=== PATIENT | male | born 1960 | race Caucasian/White ===

== ENCOUNTER 2016-06-16 11:15 | Inpatient (IN) | payer OTHER ==
[2016-06-16 12:07] VITALS: BMI 27.4
--- NOTE | 2016-06-16 14:32 | HP ---
CIWA Score - CIWA Score Nausea/Vomitin Muscle Tremors: 3 Anxiety: 3 Agitation: 2 Paroxysmal Sweats: 2 Orientation: 0-Oriented Tacttile Disturbances: 2-Mild Itch/Numbness/Burn Auditory Disturbances: 2-Mild Harshness/Frighten Visual Disturbances: 2-Mild Sensitivity Headache: 2-Mild CIWA-Ar Total Score: 21 Admission ROS BHS - HPI Chief Complaint: i need help to stop drinking alcohol Allergies/Adverse Reactions: Allergies Allergy/AdvReac Type Severity Reaction Status Date / Time No Known Allergies Allergy Verified 06/16/16 14:19 History of Present Illness: this 55 years old male with alcohol dependence,withdrawal symptom,last detox interfaithe 2004 seizure syncope fx of l1 s/p surgery incontinence of urine and feces gouty arthritis anxiety and depression no significant period of sobriety - Ebola screening Have you traveled outside of the country in the last 21 days: No Have you had contact with anyone from an Ebola affected area: No Have you been sick,other than usual withdrawal symptoms: No Do you have a fever: No - Review of Systems Constitutional: Chills, Loss of Appetite, Malaise, Night Sweats, Changes in sleep, Weakness EENT: reports: Nose Congestion Respiratory: reports: No Symptoms reported Cardiac: reports: Palpitations GI: reports: Diarrhea, Poor Appetite, Abdominal cramping : reports: Incontinence Musculoskeletal: reports: Gout, Joint Pain, Muscle Pain Integumentary: reports: Dryness Neuro: reports: Headache, Tremors Endocrine: reports: No Symptoms Reported Hematology: reports: No Symptoms Reported Psychiatric: reports: Anxious, Depressed Patient History - Patient Medical History Hx Anemia: No Hx Asthma: No Hx Chronic Obstructive Pulmonary Disease (COPD): No Hx Cancer: No Hx Cardiac Disorders: No Hx Congestive Heart Failure: No Hx Hypertension: Yes (on med) Hx Hypercholesterolemia: No Hx Pacemaker: No HX Cerebrovascular Accident: No Hx Seizures: Yes (last 2015) Hx Dementia: No Hx Diabetes: No Hx Gastrointestinal Disorders: No Hx Liver Disease: No Hx Genitourinary Disorders: No Hx Sexually Transmitted Disorders: No Hx Renal Disease (ESRD): No Hx Thyroid Disease: No Hx Human Immunodeficiency Virus (HIV): No (last 2015) Hx Hepatitis C: Yes (under the care of pmd) Hx Depression: Yes (anxiety) Hx Suicide Attempt: Yes (cutter left wrist) Hx Bipolar Disorder: No Hx Schizophrenia: No Other Medical History: no suicidal,no homicidal - Patient Surgical History Past Surgical History: Yes Hx Abdominal Surgery: Yes (surgery of liver abscess in 2007,rectal prolapse lap 2014) Hx Orthopedic Surgery: Yes (for fx of l1at age of 17) - PPD History Previous Implant?: Yes Documented Results: Negative w/o proof Implanted On Prior R Admission?: No PPD to be Administered?: Yes - Smoking Cessation Smoking history: Current every day smoker Have you smoked in the past 12 months: Yes Aproximately how many cigarettes per day: 20 Cigars Per Day: 0 Hx Chewing Tobacco Use: No Initiated information on smoking cessation: Yes 'Breaking Loose' booklet given: 06/16/16 - Substance & Tx. History Hx Alcohol Use: Yes Hx Substance Use: No Substance Use Type: Alcohol Hx Substance Use Treatment: Yes (interfaithe 2014) - Substances Abused Alcohol Route: Oral Frequency: Daily Amount used: FIFTH OF VODKA Age of first use: 16 Date of Last Use: 06/16/16 Family Disease History - Family Disease History Family Disease History: Other: Father (alcohol) Admission Physical Exam S - Vital Signs Vital Signs: Vital Signs - 24 hr 06/16/16 12:05 Temperature 98.1 F Pulse Rate 113 H Respiratory 20 Rate Blood Pressure 132/96 - Physical General Appearance: Yes: Moderate Distress, Tremorous, Irritable, Sweating, Anxious HEENTM: Yes: Normal ENT Inspection, Pharynx Normal, Nasal Congestion Respiratory: Yes: Lungs Clear, Normal Breath Sounds, No Respiratory Distress Neck: Yes: Within Normal Limits, Supple, Trachea in good position Breast: Yes: Within Normal Limits Cardiology: Yes: Within Normal Limits, Regular Rhythm, Regular Rate, S1, S2 Abdominal: Yes: Within Normal Limits, Normal Bowel Sounds, Non Tender, Flat, Soft Genitourinary: Yes: Pain (incontinence of urine) Back: Yes: Muscle Spasm Musculoskeletal: Yes: Back pain, Muscle Pain, Other (scar in lower back) Extremities: Yes: Normal Range of Motion, Tremors Neurological: Yes: 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, Fully Oriented, Alert, Motor Strength 5/5 Integumentary: Yes: Warm, Other (swelling with pain in right big toe with cellulitis) Lymphatic: Yes: Within Normal Limits - Diagnostic (1) Alcohol dependence with uncomplicated withdrawal Current Visit: Yes Status: Acute (2) Seizure Current Visit: Yes Status: Acute (3) Syncope Current Visit: Yes Status: Acute (4) Gouty arthritis Current Visit: Yes Status: Acute (5) Fracture of L1 vertebra Current Visit: Yes Status: Acute (6) History of back surgery Current Visit: Yes Status: Acute (7) Hepatitis C Current Visit: Yes Status: Acute (8) Incontinence of urine Current Visit: Yes Status: Acute (9) Incontinence, feces Current Visit: Yes Status: Acute (10) Anxiety and depression Current Visit: Yes Status: Acute (11) Hypertension Current Visit: Yes Status: Acute (12) Cellulitis of right foot Current Visit: Yes Status: Acute Cleared for Admission [facility] - Detox or Rehab [facility] Level of Care: Medically Managed Detox Regimen/Protocol: Librium [facility] Breath Alcohol Content Breath Alcohol Content: 0.074 Urine Drug Screen - Results Drug Screen Negative: No Urine Drug Screen Results: BZO-Benzodiazepines
[2016-06-16] MEDS ORDERED: guaiFENesin/D-METHORPHAN HB 10 ML UNIT-DOSE CUPS PO PRN (14:49)
[2016-06-16] MEDS ORDERED: MAGNESIUM HYDROX 2400MG/30ML ORAL SUSPENSION 30 ML CUP PO PRN (14:49)
[2016-06-16] MEDS ORDERED: ACETAMINOPHEN 325 MG TABLET (FP) PO PRN (14:49)
[2016-06-16] MEDS ORDERED: P-EPHED 60MG/TRIPROLIDI 2.5MG TABLET PO PRN (14:49)
[2016-06-16] MEDS ORDERED: LOPERAMIDE HCL 2 MG CAPSULE PO PRN (14:49)
[2016-06-16] MEDS ORDERED: MAGNESIUM CITRATE 300 ML BOTTLE PO PRN (14:49)
[2016-06-16] MEDS ORDERED: hydrOXYzine PAMOATE 25 MG CAPSULE (FP) PO PRN (14:49)
[2016-06-16] MEDS ORDERED: MENTHOL/PHENOL 1 EACH UD MM PRN (14:49)
[2016-06-16] MEDS ORDERED: MAG HYDROX/AL HYDROX/SIMETH 30 ML UNIT-DOSE CUP PO PRN (14:49)
[2016-06-16] MEDS ORDERED: chlordiazePOXIDE HCL 25 MG CAPSULE PO ONE (15:21)
[2016-06-16] MEDS: NICOTINE 7 MG/24 HOURS TOPICAL PATCH TD SCH (15:30)
[2016-06-16] MEDS ORDERED: cloNIDine HCL 0.1 MG TABLET PO ONE (15:38)
[2016-06-16] MEDS: CEPHALEXIN MONOHYDRATE 500 MG CAPSULE (UD) PO SCH ×2 (17:12→22:08)
[2016-06-16] MEDS: chlordiazePOXIDE HCL 25 MG CAPSULE PO SCH ×2 (17:12→22:08)
[2016-06-16 18:43] LABS: URINE APPEARANCE CLOUDY; URINE BILIRUBIN NEGATIVE (NEGATIVE); URINE BLOOD NEGATIVE (NEGATIVE); URINE COLOR DKYELLOW; URINE GLUCOSE (UA) NEGATIVE (NEGATIVE); URINE KETONE NEGATIVE (NEGATIVE); URINE NITRITE NEGATIVE (NEGATIVE); URINE UROBILINOGEN NEGATIVE E.U./dl (0.2-1.0)
[2016-06-16 18:47] LABS: URINE LEUK ESTERASE 3+ (NEGATIVE); URINE PROTEIN 2+ (NEGATIVE)
[2016-06-16 19:04] LABS: URINE MUCUS RARE; URINE RBC 66 /hpf (0-3); URINE WBC 1700 /hpf (3-5)
[2016-06-16 19:26] LABS: HIV 1 & 2 AB NEGATIVE; HIV 1 AGp24 NEGATIVE
[2016-06-16] MEDS: THIAMINE HCL 100 MG TABLET (FP) PO SCH (22:08)
[2016-06-16] MEDS: diphenhydrAMINE HCL 50 MG CAPSULE PO PRN (22:08)
[2016-06-17] MEDS: chlordiazePOXIDE HCL 25 MG CAPSULE PO SCH ×4 (05:56→22:09)
[2016-06-17 09:52] LABS: URINE APPEARANCE TURBID; URINE BILIRUBIN NEGATIVE (NEGATIVE); URINE COLOR DKYELLOW; URINE GLUCOSE (UA) NEGATIVE (NEGATIVE); URINE KETONE NEGATIVE (NEGATIVE); URINE NITRITE NEGATIVE (NEGATIVE); URINE UROBILINOGEN NEGATIVE E.U./dl (0.2-1.0)
[2016-06-17 09:53] LABS: MCH 31.8 pg (25.7-33.7); MCHC 33.6 g/dl (32.0-35.9); MEAN CELL VOLUME 94.7 fl (80-96); MEAN PLT VOLUME 9.8 fl (7.5-11.1); PLATELET COUNT 191 K/MM3 (134-434); RDW 13.2 % (11.9-15.9); WHITE BLOOD COUNT 10.2 K/mm3 (4.0-10.0)
[2016-06-17 10:00] LABS: URINE BLOOD 1+ (NEGATIVE); URINE LEUK ESTERASE 3+ (NEGATIVE); URINE PROTEIN 2+ (NEGATIVE)
[2016-06-17 10:07] LABS: GRANULAR CASTS 9 /lpf; URINE HYALINE CAST 9 /lpf; URINE MUCUS FEW; URINE RBC 153 /hpf (0-3); URINE WBC 1838 /hpf (3-5)
[2016-06-17] MEDS: PRENATAL VITAMINS W/ FOLIC ACID TABLET (FP) PO SCH (10:14)
[2016-06-17] MEDS: CEPHALEXIN MONOHYDRATE 500 MG CAPSULE (UD) PO SCH ×4 (10:14→22:09)
[2016-06-17] MEDS: COLCHICINE 0.6 MG TABLET (FP) PO SCH (10:14)
[2016-06-17] MEDS: NICOTINE 7 MG/24 HOURS TOPICAL PATCH TD SCH (10:14)
[2016-06-17] MEDS: IBUPROFEN 400 MG TABLET (FP) PO PRN ×2 (10:18→17:45)
[2016-06-17 10:38] LABS: ALBUMIN 4.6 g/dl (3.4-5.0); ALK PHOS 85 U/L (45-117); ANION GAP 12 (8-16); BILIRUBIN,TOTAL 0.7 mg/dL (0.2-1.0); CALCIUM 9.8 mg/dL (8.5-10.1); CO2 25 mmol/L (21-32); CREATININE 0.7 mg/dL (0.7-1.3); GLUCOSE,RANDOM 82 mg/dL (74-106); SGOT/AST 47 U/L (15-37); SGPT/ALT 45 U/L (12-78); TOT PROT 7.8 g/dl (6.4-8.2)
--- NOTE | 2016-06-17 10:58 | CONSULT ---
[facility] Psychiatric Consult - Data Date of interview: 06/17/16 Admission source: [facility] Identifying data: First admission to [facility] for this 55 y/o male seeking detox treatment foir alcohol dependence.Patient is ,a father of four,domiciled,disabled and supported on SSI benefits. Substance Abuse History: - Smoking Cessation. Smoking history: Current every day smoker. Have you smoked in the past 12 months: Yes. Aproximately how many cigarettes per day: 20. Cigars Per Day: 0. Hx Chewing Tobacco Use: No. Initiated information on smoking cessation: Yes. 'Breaking Loose' booklet given : 06/16/16. - Substance & Tx. History. Hx Alcohol Use: Yes. Hx Substance Use : No. Substance Use Type: Alcohol. Hx Substance Use Treatment: Yes ( interfaithe 2014). - Substances Abused. Alcohol. Route: Oral. Frequency: Daily. Amount used: FIFTH OF VODKA. Age of first use: 16. Date of Last Use: 06/16/16. Confirmed by patient. Medical History: Hypertension,withdrawal-related seizures (2015),gout,arthritis, hepatitis C and a history multiple surgeries (abdominal surgery for liver abscess in 2007,rectal prolapse in 2014,orthosurgery for fracture of L1 at age 17).Noted permanent urinary/fecal incontinence.Patient ambulates witha cane. Psychiatric History: Patient denies.No psychiatric hospitalizations in spite of self-report of two suicide attempts (wrist-cutting and drug overdose) years ago. Physical/Sexual Abuse/Trauma History: Patient denies. Additional Comment: Urine Drug Screen Results: BZO-Benzodiazepines.Noted. Mental Status Exam - Mental Status Exam Alert and Oriented to: Time, Place, Person Cognitive Function: Good Patient Appearance: Well Groomed Mood: Hopeful, Euthymic Affect: Appropriate, Normal Range Patient Behavior: Appropriate, Cooperative Speech Pattern: Clear, Appropriate Voice Loudness: Normal Thought Process: Goal Oriented Thought Disorder: Not Present Hallucinations: Denies Suicidal Ideation: Denies Homicidal Ideation: Denies Insight/Judgement: Poor Sleep: Poorly, Difficulty falling asleep Appetite: Good Muscle strength/Tone: Normal Gait/Station: Normal Psychiatric Findings - Problem List ([place] 1, 2,3) (1) Alcohol dependence with uncomplicated withdrawal Current Visit: Yes Status: Acute (2) Nicotine dependence Current Visit: Yes Status: Acute (3) Cellulitis of right foot Current Visit: Yes Status: Acute (4) Fracture of L1 vertebra Current Visit: Yes Status: Chronic (5) Gouty arthritis Current Visit: Yes Status: Chronic (6) Hepatitis C Current Visit: Yes Status: Chronic (7) History of back surgery Current Visit: Yes Status: Chronic (8) Hypertension Current Visit: Yes Status: Chronic (9) Incontinence of urine Current Visit: Yes Status: Chronic (10) Incontinence, feces Current Visit: Yes Status: Chronic (11) Insomnia Current Visit: Yes Status: Acute - Initial Treatment Plan Initial Treatment Plan: Psychoeducation.Detoxification.Zolpidem 10 mg po hs prn (patient's request).Made aware of the risk of parasomnias.Patient agrees with this careplan.Observation.
--- NOTE | 2016-06-17 11:21 | PN ---
[facility] CIWA - CIWA Score Nausea/Vomitin-No Nausea/No Vomiting Muscle Tremors: 4-Moderate,w/Arms Extend Anxiety: 4-Mod. Anxious/Guarded Agitation: 4-Moderately Restless Paroxysmal Sweats: 1-Minimal Palms Moist Orientation: 0-Oriented Tacttile Disturbances: 3-Moderate Itch/Numb/Burn Auditory Disturbances: 0-None Visual Disturbances: 0-None Headache: 0-None Present CIWA-Ar Total Score: 16 BHS Progress Note (SOAP) Subjective: ANXIETY,SWEATS,TREMORS,FATIGUE. Objective: 06/17/16 11:19 Vital Signs Temperature 96.4 F L 06/17/16 09:12 Pulse Rate 91 H 06/17/16 09:12 Respiratory Rate 20 06/17/16 09:12 Blood Pressure 134/92 06/17/16 09:12 O2 Sat by Pulse Oximetry (%) Laboratory Last Values WBC 10.2 K/mm3 (4.0-10.0) H 06/17/16 06:20 RBC 5.39 M/mm3 (4.00-5.60) 06/17/16 06:20 Hgb 17.1 GM/dL (11.7-16.9) H 06/17/16 06:20 Hct 51.1 % (35.4-49) H 06/17/16 06:20 MCV 94.7 fl (80-96) 06/17/16 06:20 MCHC 33.6 g/dl (32.0-35.9) 06/17/16 06:20 RDW 13.2 % (11.9-15.9) 06/17/16 06:20 Plt Count 191 K/MM3 (134-434) 06/17/16 06:20 MPV 9.8 fl (7.5-11.1) 06/17/16 06:20 Sodium 142 mmol/L (136-145) 06/17/16 06:20 Potassium 4.9 mmol/L (3.5-5.1) 06/17/16 06:20 Chloride 105 mmol/L (98-107) 06/17/16 06:20 Carbon Dioxide 25 mmol/L (21-32) 06/17/16 06:20 Anion Gap 12 (8-16) 06/17/16 06:20 BUN 17 mg/dL (7-18) 06/17/16 06:20 Creatinine 0.7 mg/dL (0.7-1.3) 06/17/16 06:20 Creat Clearance w eGFR > 60 (>60) 06/17/16 06:20 Random Glucose 82 mg/dL (74-106) 06/17/16 06:20 Calcium 9.8 mg/dL (8.5-10.1) 06/17/16 06:20 Total Bilirubin 0.7 mg/dL (0.2-1.0) 06/17/16 06:20 AST 47 U/L (15-37) H 06/17/16 06:20 ALT 45 U/L (12-78) 06/17/16 06:20 Alkaline Phosphatase 85 U/L (45-117) 06/17/16 06:20 Total Protein 7.8 g/dl (6.4-8.2) 06/17/16 06:20 Albumin 4.6 g/dl (3.4-5.0) 06/17/16 06:20 Urine Color Dkyellow 06/17/16 08:30 Urine Appearance Turbid 06/17/16 08:30 Urine pH 5.0 (5.0-8.0) 06/17/16 08:30 Ur Specific [place] 1.028 (1.001-1.035) 06/17/16 08:30 Urine Protein 2+ (NEGATIVE) H 06/17/16 08:30 Urine Glucose (UA) Negative (NEGATIVE) 06/17/16 08:30 Urine Ketones Negative (NEGATIVE) 06/17/16 08:30 Urine Blood 1+ (NEGATIVE) H 06/17/16 08:30 Urine Nitrite Negative (NEGATIVE) 06/17/16 08:30 Urine Bilirubin Negative (NEGATIVE) 06/17/16 08:30 Urine Urobilinogen Negative E.U./dl (0.2-1.0) 06/17/16 08:30 Ur Leukocyte Esterase 3+ (NEGATIVE) H 06/17/16 08:30 Urine RBC 153 /hpf (0-3) 06/17/16 08:30 Urine WBC 1838 /hpf (3-5) 06/17/16 08:30 Ur Epithelial Cells Rare /hpf (FEW) 06/17/16 08:30 Hyaline Casts 9 /lpf 06/17/16 08:30 Granular Casts 9 /lpf 06/17/16 08:30 Urine Mucus Few 06/17/16 08:30 HIV 1&2 Antibody Screen Negative 06/16/16 18:40 HIV P24 Antigen Negative 06/16/16 18:40 LABS NOTED Assessment: 06/17/16 11:20 WITHDRAWAL SX Plan: CONTINUE DETOX REPEAT UA;UC
--- NOTE | 2016-06-17 11:25 | EKG ---
Test Reason : Blood Pressure : / mmHG Vent. Rate : 106 BPM Atrial Rate : 106 BPM P-R Int : 150 ms QRS Dur : 090 ms QT Int : 332 ms P-R-T Axes : 067 019 054 degrees QTc Int : 441 ms SINUS TACHYCARDIA SEPTAL INFARCT , AGE UNDETERMINED ABNORMAL ECG NO PREVIOUS ECGS AVAILABLE Confirmed by JANET MAYES, RIGOBERTO ([id number]) on 06/17/2016 11:24:38 AM Referred By: Confirmed By:RIGOBERTO GONZALES MD
[2016-06-17] MEDS: chlordiazePOXIDE HCL 25 MG CAPSULE PO PRN (13:54)
[2016-06-17 15:17] LABS: URINE APPEARANCE CLOUDY; URINE BILIRUBIN NEGATIVE (NEGATIVE); URINE BLOOD NEGATIVE (NEGATIVE); URINE COLOR YELLOW; URINE GLUCOSE (UA) NEGATIVE (NEGATIVE); URINE KETONE NEGATIVE (NEGATIVE); URINE NITRITE NEGATIVE (NEGATIVE); URINE UROBILINOGEN NEGATIVE E.U./dl (0.2-1.0)
[2016-06-17 15:28] LABS: URINE LEUK ESTERASE 3+ (NEGATIVE); URINE PROTEIN 1+ (NEGATIVE)
[2016-06-17 16:21] LABS: URINE HYALINE CAST 19 /lpf; URINE MUCUS RARE; URINE RBC 30 /hpf (0-3); URINE WBC 569 /hpf (3-5)
[2016-06-17] MEDS: THIAMINE HCL 100 MG TABLET (FP) PO SCH (22:09)
[2016-06-17] MEDS: ZOLPIDEM TARTRATE 10 MG TABLET (PARK CARE ONLY) PO PRN (22:11)
[2016-06-18] MEDS: IBUPROFEN 400 MG TABLET (FP) PO PRN ×2 (05:55→17:49)
[2016-06-18] MEDS: chlordiazePOXIDE HCL 25 MG CAPSULE PO SCH ×2 (05:56→10:00)
[2016-06-18] MEDS: CEPHALEXIN MONOHYDRATE 500 MG CAPSULE (UD) PO SCH ×4 (10:00→22:20)
[2016-06-18] MEDS: PRENATAL VITAMINS W/ FOLIC ACID TABLET (FP) PO SCH (10:00)
[2016-06-18] MEDS: NICOTINE 7 MG/24 HOURS TOPICAL PATCH TD SCH (10:00)
[2016-06-18] MEDS: COLCHICINE 0.6 MG TABLET (FP) PO SCH (10:00)
--- NOTE | 2016-06-18 10:21 | PN ---
S CIWA - CIWA Score Nausea/Vomitin-No Nausea/No Vomiting Muscle Tremors: 4-Moderate,w/Arms Extend Anxiety: 3 Agitation: 4-Moderately Restless Paroxysmal Sweats: 3 Orientation: 0-Oriented Tacttile Disturbances: 0-None Auditory Disturbances: 0-None Visual Disturbances: 0-None Headache: 0-None Present CIWA-Ar Total Score: 14 BHS Progress Note (SOAP) Subjective: Sweating,anxiety,tremors,interrupted sleep,restless Objective: 06/18/16 10:18 Vital Signs - 8 hr 06/18/16 06/18/16 06/18/16 03:56 06:36 09:22 Temperature 97.3 F L 95.9 F L Pulse Rate 73 82 Respiratory 18 18 18 Rate Blood Pressure 126/88 123/84 Laboratory Tests 06/16/16 06/16/16 06/17/16 13:00 18:40 06:20 WBC 10.2 H RBC 5.39 Hgb 17.1 H Hct 51.1 H MCV 94.7 MCHC 33.6 RDW 13.2 Plt Count 191 MPV 9.8 Sodium Potassium Chloride Carbon Dioxide Anion Gap BUN Creatinine Creat Clearance w eGFR Random Glucose Calcium Total Bilirubin AST ALT Alkaline Phosphatase Total Protein Albumin Urine Color Dkyellow Urine Appearance Cloudy Urine pH 5.0 Ur Specific [place] 1.032 Urine Protein 2+ H Urine Glucose (UA) Negative Urine Ketones Negative Urine Blood Negative Urine Nitrite Negative Urine Bilirubin Negative Urine Urobilinogen Negative Ur Leukocyte Esterase 3+ H Urine RBC 66 Urine WBC 1700 Ur Epithelial Cells Few Hyaline Casts Granular Casts Urine Mucus Rare RPR Titer HIV 1&2 Antibody Screen Negative HIV P24 Antigen Negative 06/17/16 06/17/16 06/17/16 06:20 06:20 08:30 WBC RBC Hgb Hct MCV MCHC RDW Plt Count MPV Sodium 142 Potassium 4.9 Chloride 105 Carbon Dioxide 25 Anion Gap 12 BUN 17 Creatinine 0.7 Creat Clearance w eGFR > 60 Random Glucose 82 Calcium 9.8 Total Bilirubin 0.7 AST 47 H ALT 45 Alkaline Phosphatase 85 Total Protein 7.8 Albumin 4.6 Urine Color Dkyellow Urine Appearance Turbid Urine pH 5.0 Ur Specific [place] 1.028 Urine Protein 2+ H Urine Glucose (UA) Negative Urine Ketones Negative Urine Blood 1+ H Urine Nitrite Negative Urine Bilirubin Negative Urine Urobilinogen Negative Ur Leukocyte Esterase 3+ H Urine RBC 153 Urine WBC 1838 Ur Epithelial Cells Rare Hyaline Casts 9 Granular Casts 9 Urine Mucus Few RPR Titer Nonreactive HIV 1&2 Antibody Screen HIV P24 Antigen 06/17/16 12:00 WBC RBC Hgb Hct MCV MCHC RDW Plt Count MPV Sodium Potassium Chloride Carbon Dioxide Anion Gap BUN Creatinine Creat Clearance w eGFR Random Glucose Calcium Total Bilirubin AST ALT Alkaline Phosphatase Total Protein Albumin Urine Color Yellow Urine Appearance Cloudy Urine pH 5.0 Ur Specific [place] 1.028 Urine Protein 1+ H Urine Glucose (UA) Negative Urine Ketones Negative Urine Blood Negative Urine Nitrite Negative Urine Bilirubin Negative Urine Urobilinogen Negative Ur Leukocyte Esterase 3+ H Urine RBC 30 Urine WBC 569 Ur Epithelial Cells Few Hyaline Casts 19 Granular Casts Urine Mucus Rare RPR Titer HIV 1&2 Antibody Screen HIV P24 Antigen U/A noted,pt is already on antibiotic for cellulitis.We'll increase po fluid and repeat u/a in am Assessment: 06/18/16 10:20 Withdrawal Sx. Plan: Continue detox
--- NOTE | 2016-06-18 12:36 | EKG ---
Test Reason : Blood Pressure : / mmHG Vent. Rate : 074 BPM Atrial Rate : 074 BPM P-R Int : 162 ms QRS Dur : 090 ms QT Int : 394 ms P-R-T Axes : 033 027 046 degrees QTc Int : 437 ms NORMAL SINUS RHYTHM NORMAL ECG WHEN COMPARED WITH ECG OF 16-JUN-2016 14:44, CRITERIA FOR SEPTAL INFARCT ARE NO LONGER PRESENT Confirmed by MARY MATHEW MD ([id number]) on 06/18/2016 12:36:43 PM Referred By: Confirmed By:MARY MATHEW MD
[2016-06-18] MEDS: chlordiazePOXIDE HCL 25 MG CAPSULE PO PRN (14:40)
[2016-06-18] MEDS: chlordiazePOXIDE 5 MG CAPSULE PO SCH ×2 (17:48→22:20)
[2016-06-18] MEDS: THIAMINE HCL 100 MG TABLET (FP) PO SCH (22:20)
[2016-06-18] MEDS: ZOLPIDEM TARTRATE 10 MG TABLET (PARK CARE ONLY) PO PRN (22:21)
[2016-06-19] MEDS: diphenhydrAMINE HCL 50 MG CAPSULE PO PRN (02:40)
[2016-06-19] MEDS: IBUPROFEN 400 MG TABLET (FP) PO PRN ×3 (02:40→17:56)
[2016-06-19] MEDS: chlordiazePOXIDE 5 MG CAPSULE PO SCH ×2 (05:29→10:15)
[2016-06-19] MEDS: COLCHICINE 0.6 MG TABLET (FP) PO SCH (10:15)
[2016-06-19] MEDS: PRENATAL VITAMINS W/ FOLIC ACID TABLET (FP) PO SCH (10:15)
[2016-06-19] MEDS: NICOTINE 7 MG/24 HOURS TOPICAL PATCH TD SCH (10:16)
[2016-06-19] MEDS: CEPHALEXIN MONOHYDRATE 500 MG CAPSULE (UD) PO SCH ×4 (10:16→22:06)
--- NOTE | 2016-06-19 13:12 | PN ---
BHS Progress Note (SOAP) Subjective: Body Aches, Sweating, Tremors, Interrupted sleep. Objective: PT. A & O X 2 (DISORIENTED ABOUT DAY/ DATE). PATIENT OBSERVED AMBULATING ON UNIT. 06/19/16 13:09 Vital Signs Temperature 96.7 F L 06/19/16 10:27 Pulse Rate 88 06/19/16 10:27 Respiratory Rate 18 06/19/16 10:27 Blood Pressure 127/92 06/19/16 10:27 O2 Sat by Pulse Oximetry (%) Laboratory Last Values WBC 10.2 K/mm3 (4.0-10.0) H 06/17/16 06:20 RBC 5.39 M/mm3 (4.00-5.60) 06/17/16 06:20 Hgb 17.1 GM/dL (11.7-16.9) H 06/17/16 06:20 Hct 51.1 % (35.4-49) H 06/17/16 06:20 MCV 94.7 fl (80-96) 06/17/16 06:20 MCHC 33.6 g/dl (32.0-35.9) 06/17/16 06:20 RDW 13.2 % (11.9-15.9) 06/17/16 06:20 Plt Count 191 K/MM3 (134-434) 06/17/16 06:20 MPV 9.8 fl (7.5-11.1) 06/17/16 06:20 Sodium 142 mmol/L (136-145) 06/17/16 06:20 Potassium 4.9 mmol/L (3.5-5.1) 06/17/16 06:20 Chloride 105 mmol/L (98-107) 06/17/16 06:20 Carbon Dioxide 25 mmol/L (21-32) 06/17/16 06:20 Anion Gap 12 (8-16) 06/17/16 06:20 BUN 17 mg/dL (7-18) 06/17/16 06:20 Creatinine 0.7 mg/dL (0.7-1.3) 06/17/16 06:20 Creat Clearance w eGFR > 60 (>60) 06/17/16 06:20 Random Glucose 82 mg/dL (74-106) 06/17/16 06:20 Calcium 9.8 mg/dL (8.5-10.1) 06/17/16 06:20 Total Bilirubin 0.7 mg/dL (0.2-1.0) 06/17/16 06:20 AST 47 U/L (15-37) H 06/17/16 06:20 ALT 45 U/L (12-78) 06/17/16 06:20 Alkaline Phosphatase 85 U/L (45-117) 06/17/16 06:20 Total Protein 7.8 g/dl (6.4-8.2) 06/17/16 06:20 Albumin 4.6 g/dl (3.4-5.0) 06/17/16 06:20 Urine Color Yellow 06/17/16 12:00 Urine Appearance Cloudy 06/17/16 12:00 Urine pH 5.0 (5.0-8.0) 06/17/16 12:00 Ur Specific [place] 1.028 (1.001-1.035) 06/17/16 12:00 Urine Protein 1+ (NEGATIVE) H 06/17/16 12:00 Urine Glucose (UA) Negative (NEGATIVE) 06/17/16 12:00 Urine Ketones Negative (NEGATIVE) 06/17/16 12:00 Urine Blood Negative (NEGATIVE) 06/17/16 12:00 Urine Nitrite Negative (NEGATIVE) 06/17/16 12:00 Urine Bilirubin Negative (NEGATIVE) 06/17/16 12:00 Urine Urobilinogen Negative E.U./dl (0.2-1.0) 06/17/16 12:00 Ur Leukocyte Esterase 3+ (NEGATIVE) H 06/17/16 12:00 Urine RBC 30 /hpf (0-3) 06/17/16 12:00 Urine WBC 569 /hpf (3-5) 06/17/16 12:00 Ur Epithelial Cells Few /hpf (FEW) 06/17/16 12:00 Hyaline Casts 19 /lpf 06/17/16 12:00 Granular Casts 9 /lpf 06/17/16 08:30 Urine Mucus Rare 06/17/16 12:00 RPR Titer Nonreactive (NONREACTIVE) 06/17/16 06:20 HIV 1&2 Antibody Screen Negative 06/16/16 18:40 HIV P24 Antigen Negative 06/16/16 18:40 LABS NOTED. Assessment: 06/19/16 13:11 WITHDRAWAL SYMPTOMS. Plan: CONTINUE DETOX. ADVISED PATIENT TO FOLLOW-UP WITH [facility] / REHAB MEDICAL PROVIDER AFTER DISCHARGE FROM DETOX FOR GENERAL MEDICAL ASSESSMENT AND FOR ANY ABNORMAL ADMISSION LAB VALUES.
[2016-06-19 14:12] LABS: URINE APPEARANCE CLEAR; URINE BILIRUBIN NEGATIVE (NEGATIVE); URINE BLOOD NEGATIVE (NEGATIVE); URINE COLOR YELLOW; URINE GLUCOSE (UA) NEGATIVE (NEGATIVE); URINE KETONE NEGATIVE (NEGATIVE); URINE LEUK ESTERASE 1+ (NEGATIVE); URINE NITRITE NEGATIVE (NEGATIVE); URINE PROTEIN NEGATIVE (NEGATIVE); URINE UROBILINOGEN NEGATIVE E.U./dl (0.2-1.0)
[2016-06-19 14:17] LABS: URINE MUCUS RARE; URINE RBC 4 /hpf (0-3); URINE WBC 14 /hpf (3-5)
[2016-06-19] MEDS: chlordiazePOXIDE HCL 10 MG CAPSULE PO SCH ×2 (17:54→22:06)
[2016-06-19] MEDS: THIAMINE HCL 100 MG TABLET (FP) PO SCH (22:06)
[2016-06-19] MEDS: ZOLPIDEM TARTRATE 10 MG TABLET (PARK CARE ONLY) PO PRN (22:07)
[2016-06-20] MEDS: IBUPROFEN 400 MG TABLET (FP) PO PRN (04:06)
[2016-06-20] MEDS: chlordiazePOXIDE HCL 10 MG CAPSULE PO SCH ×2 (05:24→10:04)
[2016-06-20 06:41] VITALS: BP 149/109; PULSE 75; TEMP 96.1
[2016-06-20] MEDS: CEPHALEXIN MONOHYDRATE 500 MG CAPSULE (UD) PO SCH (10:04)
[2016-06-20] MEDS: COLCHICINE 0.6 MG TABLET (FP) PO SCH (10:04)
[2016-06-20] MEDS: PRENATAL VITAMINS W/ FOLIC ACID TABLET (FP) PO SCH (10:04)
[2016-06-20] MEDS: NICOTINE 7 MG/24 HOURS TOPICAL PATCH TD SCH (10:07)
--- NOTE | 2016-06-20 15:13 | DS ---
[facility] Detox Discharge Summary Admission Date: 06/16/16 Discharge Date: 06/20/16 - History Present History: Alcohol Dependence Additional Comments: ADVISED PATIENT TO FOLLOW-UP WITH [facility] / REHAB MEDICAL PROVIDER AFTER DISCHARGER FROM DETOX FOR GENERAL MEDICAL ASSESSMENT AND FOR ABNORMAL ADMISSION LAB VALUES. Pertinent Past History: HTN, Seizures, Gouty Arthritis, Depression / Anxiety, Hep C. - Physical Exam Results Vital Signs: Vital Signs Temperature 96.1 F L 06/20/16 06:40 Pulse Rate 75 06/20/16 06:40 Respiratory Rate 18 06/20/16 06:40 Blood Pressure 149/109 06/20/16 06:40 O2 Sat by Pulse Oximetry (%) Pertinent Admission Physical Exam Findings: WITHDRAWAL SYMPTOMS. Laboratory Last Values WBC 10.2 K/mm3 (4.0-10.0) H 06/17/16 06:20 RBC 5.39 M/mm3 (4.00-5.60) 06/17/16 06:20 Hgb 17.1 GM/dL (11.7-16.9) H 06/17/16 06:20 Hct 51.1 % (35.4-49) H 06/17/16 06:20 MCV 94.7 fl (80-96) 06/17/16 06:20 MCHC 33.6 g/dl (32.0-35.9) 06/17/16 06:20 RDW 13.2 % (11.9-15.9) 06/17/16 06:20 Plt Count 191 K/MM3 (134-434) 06/17/16 06:20 MPV 9.8 fl (7.5-11.1) 06/17/16 06:20 Sodium 142 mmol/L (136-145) 06/17/16 06:20 Potassium 4.9 mmol/L (3.5-5.1) 06/17/16 06:20 Chloride 105 mmol/L (98-107) 06/17/16 06:20 Carbon Dioxide 25 mmol/L (21-32) 06/17/16 06:20 Anion Gap 12 (8-16) 06/17/16 06:20 BUN 17 mg/dL (7-18) 06/17/16 06:20 Creatinine 0.7 mg/dL (0.7-1.3) 06/17/16 06:20 Creat Clearance w eGFR > 60 (>60) 06/17/16 06:20 Random Glucose 82 mg/dL (74-106) 06/17/16 06:20 Calcium 9.8 mg/dL (8.5-10.1) 06/17/16 06:20 Total Bilirubin 0.7 mg/dL (0.2-1.0) 06/17/16 06:20 AST 47 U/L (15-37) H 06/17/16 06:20 ALT 45 U/L (12-78) 06/17/16 06:20 Alkaline Phosphatase 85 U/L (45-117) 06/17/16 06:20 Total Protein 7.8 g/dl (6.4-8.2) 06/17/16 06:20 Albumin 4.6 g/dl (3.4-5.0) 06/17/16 06:20 Urine Color Yellow 06/19/16 09:35 Urine Appearance Clear 06/19/16 09:35 Urine pH 5.0 (5.0-8.0) 06/19/16 09:35 Ur Specific [place] 1.026 (1.001-1.035) 06/19/16 09:35 Urine Protein Negative (NEGATIVE) 06/19/16 09:35 Urine Glucose (UA) Negative (NEGATIVE) 06/19/16 09:35 Urine Ketones Negative (NEGATIVE) 06/19/16 09:35 Urine Blood Negative (NEGATIVE) 06/19/16 09:35 Urine Nitrite Negative (NEGATIVE) 06/19/16 09:35 Urine Bilirubin Negative (NEGATIVE) 06/19/16 09:35 Urine Urobilinogen Negative E.U./dl (0.2-1.0) 06/19/16 09:35 Ur Leukocyte Esterase 1+ (NEGATIVE) H D 06/19/16 09:35 Urine RBC 4 /hpf (0-3) 06/19/16 09:35 Urine WBC 14 /hpf (3-5) 06/19/16 09:35 Ur Epithelial Cells Rare /hpf (FEW) 06/19/16 09:35 Hyaline Casts 19 /lpf 06/17/16 12:00 Granular Casts 9 /lpf 06/17/16 08:30 Urine Mucus Rare 06/19/16 09:35 RPR Titer Nonreactive (NONREACTIVE) 03/29/17 06:20 HIV 1&2 Antibody Screen Negative 06/16/16 18:40 HIV P24 Antigen Negative 06/16/16 18:40 LABS NOTED. - Treatment Hospital Course: Detox Protocol Followed, Detoxed Safely, Responded well, Discharged Condition Good Patient has Accepted a Rehab Referral to: NO - PT. TO GO HOME AT THIS TIME AND PURSUE REHAB AT A LATER TIME. - Medication Discharge Medications: Ambulatory Orders Cephalexin [Keflex] 500 mg PO QID 06/16/16 Colchicine [Colcrys -] 0.6 mg PO DAILY #30 tab 06/20/16 - Diagnosis (1) Alcohol dependence with uncomplicated withdrawal Status: Acute (2) Anxiety and depression Status: Chronic (3) Cellulitis of right foot Status: Acute (4) Insomnia Status: Chronic Qualifiers: Insomnia type: unspecified Qualified Code(s): G47.00 - Insomnia, unspecified (5) Seizure Status: Chronic (6) Syncope Status: Acute Qualifiers: Syncope type: unspecified Qualified Code(s): R55 - Syncope and collapse (7) Gouty arthritis Status: Chronic (8) Hepatitis C Status: Chronic Qualifiers: Viral hepatitis chronicity: chronic Hepatic coma status: without hepatic coma Qualified Code(s): B18.2 - Chronic viral hepatitis C (9) History of back surgery Status: Chronic (10) Hypertension Status: Chronic Qualifiers: Hypertension type: essential hypertension Qualified Code(s): I10 - Essential (primary) hypertension (11) Incontinence of urine Status: Chronic Qualifiers: Urinary Incontinence type: unspecified incontinence Qualified Code(s ): R32 - Unspecified urinary incontinence (12) Incontinence, feces Status: Chronic Qualifiers: Fecal incontinence type: unspecified Qualified Code(s): R15.9 - Full incontinence of feces - AMA Did Patient Leave Against Medical Advice: No
== END 2016-06-20 10:10 | disposition home or self-care (01) | DRG 775 ==
LOC: YASAS 11:15 → Y3N 14:51
PROVIDERS: ADMIT Internal Medicine; ATTEND Internal Medicine
PROC: HZ2ZZZZ Detoxification Services for Substance Abuse Treatment (ICD-10-PCS; principal; 2016-06-20)
DX: F10.230 Alcohol dependence with withdrawal, uncomplicated (principal); F17.210 Nicotine dependence, cigarettes, uncomplicated; F41.8 Other specified anxiety disorders; G47.00 Insomnia, unspecified; I10 Essential (primary) hypertension; B18.2 Chronic viral hepatitis C; R32 Unspecified urinary incontinence; R15.9 Full incontinence of feces; L03.115 Cellulitis of right lower limb; M10.9 Gout, unspecified; Z86.69 Personal history of other diseases of the nervous system and sense organs; Z87.81 Personal history of (healed) traumatic fracture
CPT/HCPCS: 36415; 80053; 81003; 81015; 85027; 86593; 87086; 87389; 93005; 93010